=== PATIENT | female | born 1955 | race Caucasian/White ===

== ENCOUNTER → 2019-12-13 15:03 | Outpatient (BNVA) | payer MEDICARE, SELFPAY | PROVIDERS: Family Provider Family Medicine; PCP Family Medicine; Visit Provider Orthopaedic Surgery | DX: Z48.89 Encounter for other specified surgical aftercare (principal); Z98.890 Other specified postprocedural states; S92.352A Displaced fracture of fifth metatarsal bone, left foot, initial encounter for closed fracture; X58.XXXA Exposure to other specified factors, initial encounter; M20.42 Other hammer toe(s) (acquired), left foot | CPT/HCPCS: 73630 ==

== ENCOUNTER 2020-05-03 14:25 | Outpatient (CLI) | payer MEDICARE, SELFPAY ==
--- NOTE | 2020-05-03 14:31 | MM_ITS ---
WS: [id number] BILATERAL SCREENING DIGITAL MAMMOGRAM WITH CAD HISTORY: SCREENING COMPARISON: 12/07/2017 and 09/03/2010 Bilateral CC and MLO views submitted. Computer aided detection analyzed. Breast composition: The breasts are heterogeneously dense, which may obscure small masses. No suspici ous masses, microcalcifications or architectural distortion. Dense breast parenchyma with scattered c alcifications. MM/[id number] IMPRESSION: BI-RADS: 2-Benign FOLLOW UP: 1 Year Follow-up
== END 2020-05-03 14:26 | disposition home or self-care (01) ==
LOC: RADSHAW 14:30
PROVIDERS: PCP Family Medicine; Visit Provider Family Medicine
DX: Z12.31 Encounter for screening mammogram for malignant neoplasm of breast (principal)
CPT/HCPCS: 77067

== ENCOUNTER 2020-07-04 13:02 | Outpatient (CLI) | payer MEDICARE, SELFPAY ==
--- NOTE | 2020-07-04 13:13 | CT_ITS ---
WS: [id number] LDCT LUNG CANCER SCREENING TECHNIQUE: Noncontrast CT of the chest with coronal and sagittal reformatted images. CLINICAL INFORMATION: NICOTINE DEPENDENCE, CIGARETTES COMPARISON: CT July 13, 2015 DLP: 52.15 mGy.cm DIvol: 1.[address] scans at [facility] use at least one of these dose Optimization techniques: automa aby exposure control; mA and/or kV adjustment per patient size (includes targeted exams where dose is matched to clinical indication); or iterative reconstruction. FINDINGS: 2 or 3 tiny subpleural noncalcified pulmonary nodules measuring 2 to 3 mm. Lungs are well aerated. No acute pulmonary infiltrates. No consolidation or pleural fluid. No mediast inal or hilar lymphadenopathy. Mild chronic anterior wedging in the lower thoracic spine with disc sp bulmaro narrowing. CT/CT lung screening [id number] IMPRESSION: LUNG-RADS: 2-Benign Appearance or Behavior FOLLOW UP: 12 Month: Continue annual screening with LDCT
== END 2020-07-04 13:03 | disposition home or self-care (01) ==
LOC: CT 13:03
PROVIDERS: PCP Family Medicine; Visit Provider Family Medicine
DX: Z12.2 Encounter for screening for malignant neoplasm of respiratory organs (principal); F17.210 Nicotine dependence, cigarettes, uncomplicated; R91.8 Other nonspecific abnormal finding of lung field
CPT/HCPCS: G0297

== ENCOUNTER 2020-08-27 15:03 | Outpatient (CLI) | payer MEDICARE, SELFPAY ==
--- NOTE | 2020-08-27 15:30 | XR_ITS ---
WS: [id number] Exam: XR lumbar spine 2-3V* [id number] Date/Time of Exam: 08/27/2020 4:04 PM Reason For Exam: LUMBAR SPINAL TENDERNESS POST FALL Comparison 11/11/2017. No acute fracture or dislocation. Advanced degenerative disc changes and spondylosis at all levels. M ild degenerative anterolisthesis of L4 on L5. Facet arthropathy at all levels. Mild scoliosis. XR/XR lumbar spine 2-3V* [id number] IMPRESSION: 1. Moderately advanced degenerative changes. 2. No fracture or malalignment.
--- NOTE | 2020-08-27 15:30 | XR_ITS ---
WS: [id number] Exam: XR hip RT 2-3V wo/w pel* [id number] Date/Time of Exam: 08/27/2020 4:04 PM Reason For Exam: RIGHT HIP PAIN FALL A small incomplete cortical fracture is noted along the greater trochanter of the proximal right femu r. No other fractures are seen. Advanced degenerative change with [id number] articulation. Normal s oft tissues. XR/XR hip RT 2-3V wo/w pel* [id number] IMPRESSION: 1. Small incomplete cortical fracture along the greater trochanter of the right proximal femur.
== END 2020-08-27 15:04 | disposition home or self-care (01) ==
LOC: RADWPI 15:11
PROVIDERS: PCP Family Medicine; Visit Provider Family Medicine
DX: M54.5 Low back pain (principal); S72.111A Displaced fracture of greater trochanter of right femur, initial encounter for closed fracture; W19.XXXA Unspecified fall, initial encounter
CPT/HCPCS: 72100; 73502

== ENCOUNTER → 2020-09-11 11:33 | Outpatient (BNVA) | payer MEDICARE, SELFPAY | PROVIDERS: PCP Family Medicine; Visit Provider Orthopaedic Surgery | DX: M25.551 Pain in right hip (principal) | CPT/HCPCS: 73502 ==

== ENCOUNTER 2020-09-11 13:55 | Outpatient (CLI) | payer MEDICARE, SELFPAY ==
--- NOTE | 2020-09-11 | XR_ITS ---
WS: [id number] Lumbar spine, AP, L5-S1 spot, lateral with neutral, flexion and extension views, 09/11/2020 Clinical Data: TENDERNESS OF LUMBAR REGION Comparison: Lumbar spine, 08/27/2020. Findings: No compression fractures are seen. There is disc space narrowing at all levels. There is a 0.5 cm ant erolisthesis of L4 on L5.. The transverse processes and SI joints are normal. Generative arthritic change of the lower thoracic vertebral bodies in all lumbar vertebral bodies is seen. There is a levoscoliosis of the upper lumbar spine. On flexion and extension there is no limita tion of motion or change in the subluxation. XR/XR lumbar spine min 4V [id number] Impression: 1. Diffuse osteoarthritis and degenerative disc disease. 2. 0.5 cm subluxation on L4 on L5 unchanged on flexion or extension. 3. No limitation of motion on flexion or extension
== END 2020-09-11 13:56 | disposition home or self-care (01) ==
LOC: RADOUTREAD 15:00
PROVIDERS: PCP Family Medicine; Visit Provider Family Medicine
DX: M54.5 Low back pain (principal)

== ENCOUNTER → 2020-09-25 14:15 | Outpatient (BNVA) | payer MEDICARE, SELFPAY | PROVIDERS: PCP Family Medicine; Visit Provider Orthopaedic Surgery | DX: S72.111A Displaced fracture of greater trochanter of right femur, initial encounter for closed fracture (principal) | CPT/HCPCS: 73502 ==

== ENCOUNTER → 2020-10-23 11:16 | Outpatient (BNVA) | payer MEDICARE, SELFPAY | PROVIDERS: PCP Family Medicine; Visit Provider Orthopaedic Surgery | DX: S72.111A Displaced fracture of greater trochanter of right femur, initial encounter for closed fracture (principal) | CPT/HCPCS: 73502 ==

== ENCOUNTER → 2020-12-11 11:01 | Outpatient (BNVA) | payer MEDICARE, SELFPAY | PROVIDERS: PCP Family Medicine; Visit Provider Orthopaedic Surgery | DX: S72.111D Displaced fracture of greater trochanter of right femur, subsequent encounter for closed fracture with routine healing (principal); Z98.890 Other specified postprocedural states; W19.XXXD Unspecified fall, subsequent encounter | CPT/HCPCS: 73502 ==

== ENCOUNTER 2021-03-25 16:04 | Outpatient (CLI) | payer MEDICARE, SELFPAY ==
--- NOTE | 2021-03-25 16:14 | XR_ITS ---
WS: [id number] DEXA (DUAL ENERGY X-RAY ABSORPTIOMETRY) Bone mineral density was performed using a 48domain machine. HISTORY: POST MENOPAUSAL COMPARISON: 09/26/2018 Lumbar spine BMD (L1-L4): 1.216 g/cm2 T score: 0.3 Z score: 2.5 Total hip BMD: Left: 0.718 g/cm2. T score: -2.3 Z score: -0.6 Right: 0.836 g/cm2. T score: -1.4 Z score: 0.3 10 year probability of a major osteoporotic fracture is 36%. Compared to the prior study from . Lumbar spine bone mineral density has increased by 3.3%. Bilateral hips bone mineral density has increased by 4.2%. XR/XR DEXA axial skeleton* [id number] IMPRESSION: OSTEOPENIA based upon the WHO classification for females. Significant increase in bone mineral density since the prior study within both hips and lumbar spine.
== END 2021-03-25 16:05 | disposition home or self-care (01) ==
LOC: RADWPI 16:09
PROVIDERS: PCP Family Medicine; Visit Provider Family Medicine
DX: Z78.0 Asymptomatic menopausal state (principal); M85.88 Other specified disorders of bone density and structure, other site
CPT/HCPCS: 77080

== ENCOUNTER 2021-08-14 13:03 | Outpatient (CLI) | payer MEDICARE, SELFPAY ==
--- NOTE | 2021-08-14 13:06 | CT_ITS ---
WS: [id number] LDCT LUNG CANCER SCREENING TECHNIQUE: Noncontrast CT of the chest with coronal and sagittal reformatted images. CLINICAL INFORMATION: HISTORY OF TOBACCO USE COMPARISON: CT lung screening July 04, 2020, CT chest July 13, 2015 DLP: 51.81 mGy.cm DIvol: 1.[address] scans at [facility] use at least one of these dose optimization techniques: automat ed exposure control; mA and/or kV adjustment per patient size (includes targeted exams where dose is matched to clinical indication); or iterative reconstruction. FINDINGS: Both lungs are well aerated. No acute pulmonary infiltrates. No focal pneumonia or pleural fluid. A f ew tiny 2-3 mm noncalcified subpleural nodules unchanged. Normal caliber thoracic aorta. No mediastin al or hilar lymphadenopathy. No axillary lymphadenopathy. Normal GE junction. Mild thoracic curve. Mild thoracic kyphosis. Moderate spondylitic changes with disc space narrowing t hroughout the thoracic spine. Mild chronic anterior wedging in the lower thoracic and upper lumbar sp ine. CT/CT lung screening [id number] IMPRESSION: LUNG-RADS: 2-Benign Appearance or Behavior FOLLOW UP: 12 Month: Continue annual screening with LDCT
== END 2021-08-14 13:04 | disposition home or self-care (01) ==
LOC: CT 13:04
PROVIDERS: PCP Family Medicine; Visit Provider Family Medicine
DX: Z12.2 Encounter for screening for malignant neoplasm of respiratory organs (principal); Z87.891 Personal history of nicotine dependence
CPT/HCPCS: 71271

== ENCOUNTER 2021-08-14 13:25 | Outpatient (CLI) | payer MEDICARE, SELFPAY ==
--- NOTE | 2021-08-14 13:28 | MM_ITS ---
WS: [id number] Bilateral screening digital mammogram, 08/14/2021 Clinical Data: SCREENING Comparison: 05/03/2020, 12/07/2017, 09/03/2010. Findings: The breast parenchymal pattern shows heterogeneous density No spiculated masses or clustered calcific ations are seen. There are no secondary signs of carcinoma. MM/[place] [id number] Impression: 1. Negative bilateral mammogram unchanged. 2. Recommend annual screening mammograms. BIRADS: 1-Negative FOLLOW UP: 1 Year Follow-up The CAD checker cashier was used.
== END 2021-08-14 13:26 | disposition home or self-care (01) ==
LOC: RADSHAW 13:27
PROVIDERS: PCP Family Medicine; Visit Provider Family Medicine
DX: Z12.31 Encounter for screening mammogram for malignant neoplasm of breast (principal)
CPT/HCPCS: 77067

== ENCOUNTER → 2021-11-26 11:39 | Outpatient (BNVA) | payer MEDICARE, SELFPAY | PROVIDERS: PCP Family Medicine; Visit Provider Podiatrist Foot & Ankle Surgery | DX: M20.40 Other hammer toe(s) (acquired), unspecified foot (principal) | CPT/HCPCS: 73630 ==

== ENCOUNTER → 2021-12-15 00:01 | Outpatient (BNVA) | payer MEDICARE, SELFPAY | PROVIDERS: PCP Family Medicine; Visit Provider Podiatrist Foot & Ankle Surgery | DX: Z01.818 Encounter for other preprocedural examination (principal); Z20.822 Contact with and (suspected) exposure to COVID-19 | CPT/HCPCS: 87635; 87801 ==

== ENCOUNTER 2021-12-19 06:20 | Day surgery (SDC) | payer MEDICARE, SELFPAY ==
[2021-12-18 12:43] VITALS: BMI 20.6
[2021-12-19] VITALS (10 sets, daily range): BP systolic 126–160; BP diastolic 65–81; PULSE 53–66; RESP 14–18; TEMP 36.6–36.8; O2SAT 94–99
--- NOTE | 2021-12-19 | SCC_ITS ---
Procedure done: Left gastrocnemius recession, left second flexor digitorum longus tendon transfer to extensor digitorum longus, left proximal interphalangeal joint arthrodesis second toe, left third and fourth toe proximal interphalangeal joint arthrodesis. Fluoroscopic guidance was provided to Dr. Schmid. C-arm images of the LEFT foot were saved for the patient's permanent record. RAUL
[2021-12-19] MEDS: gabapentin 300 mg Capsule PO (06:53)
[2021-12-19] MEDS: CELEcoxib 200 mg Capsule 400 MG PO (06:53)
[2021-12-19] MEDS: sodium chloride 0.9% 1,000 ML 30 ML IV (06:58)
--- NOTE | 2021-12-19 07:17 | ANES.PREANE2 ---
Pre-Anesthetic Assessment Height/Weight: Height 1.57 m Weight 51.256 kg Temp Pulse Resp BP Pulse Ox 98.0 F 53 L 18 160/81 98 12/19/21 06:41 12/19/21 06:41 12/19/21 06:41 12/19/21 06:41 12/19/21 06:41 Preop Diagnosis: Equinus, metatarsalgia and hammertoe two, three and four all left lower Operation Date: 12/19/21 07:45 Proposed Procedures p Gastrocnemius Recession [id number](Left) - Mando Schmid DPM s Hammertoe Correction(Left) - Mando Schmid DPM Familial anesthetic complications: None Was Beta Mayur taken within 24 hours: N/A Was Clonidine taken within 24 hours: N/A Last intake: Intake Last Liquid Date 12/18/21 Last Liquid Time 23:00 Last Solid Date 12/18/21 Last Solid Time 18:30 Social No alcohol Exam alert, oriented x 3, clear to auscultation bilaterally and regular rate & rhythm Airway Submandibular: within normal limits Cervical ROM: within normal limits Mallampati: Class II Dentition: partials Pulmonary None reported CV/HEM None reported None reported Hepatic None reported Musc/skel Lower Back Pain and Osteoarthritis/DJD Neuropsych Clastrophobia Anesthetic Plan ASA status: 2 Anesthesia: Anesthesia Evaluation, General and MAC Other: We discussed risk and benefits of general anesthesia including PONV, sore throat (sometimes severe), corneal abrasion, positioning and peripheral nerve injuries, life threatening allergic reaction, post operative ICU admission requiring prolonged intubation, stroke, heart attack, , and rare incidences of recall. Patient consents to proceed with general anesthesia or MAC anesthesia pending further conversation with surgeon. I discussed with the patient risks, goals, and benefits of MAC and general anesthesia. We discussed spectrum of MAC anesthesia including conversion to general as well as possibility of recall of intraoperative stimuli including discomfort/pain. Risk of > 500 ml blood loss (7ml/kg in children): No Medications/Allergies Home Medications Medication Instructions Recorded Confirmed Last Taken Type duloxetine 30 mg capsule,delayed 30 mg PO DAILY 12/13/19 12/19/21 12/18/21 History release gabapentin 800 mg tablet 800 mg PO TID 12/13/19 12/19/21 12/18/21 History hydrocodone 10 mg-acetaminophen 1 tab PO Q8H PRN 11/26/21 12/19/21 12/18/21 History 325 mg tablet Allergies Allergy/AdvReac Type Severity Reaction Status Date / Time No Known Allergies Allergy Verified 12/19/21 06:39 Current Medications Generic Name Dose Route Start Last Admin Trade Name Freq PRN Reason Stop Dose Admin Sodium Chloride 1,000 mls @ 30 mls/hr 12/19/21 06:45 12/19/21 06:58 Sodium Chloride 0.9% IV 12/20/21 06:44 30 mls/hr .Q24H NITZA Administration PFSH Anesthesia Medical History Claustrophobia Closed displaced fracture of shaft of left clavicle with routine healing Discogenic syndrome, lumbar Hx of fracture of clavicle Papilledema, left eye Surgical History History of kidney surgery History of tubal ligation Hx of oophorectomy Family History Denies family history of Diabetes CAD (coronary artery disease) Clotting disorder Dementia Hyperlipidemia Psychiatric illness Chronic kidney disease (CKD) Suicide Anesthesia complication Bleeding disorder Family history of premature coronary artery disease Lung disease Cancer Hypertension Stroke Social History Smoking and tobacco status: current some day smoker cigarettes Alcohol intake: never Data Anesthesia Cardiac Studies: No Data to Display
--- NOTE | 2021-12-19 07:37 | W.PM.OPSUD ---
Surgery/Procedure H&P Update DATE OF PROCEDURE: December 19, 2021 DATE H&P PERFORMED: 12/15/21 CHANGES TO PREVIOUS DOCUMENTATION: none PREOP DIAGNOSIS: Equinus, metatarsalgia and hammertoe two, three and four all left lower PLANNED PROCEDURE: Operation Date: 12/19/21 07:45 Proposed Procedures p Gastrocnemius Recession [id number](Left) - Mando Schmid DPM s Hammertoe Correction(Left) - Mando Schmid DPM
--- NOTE | 2021-12-19 07:46 | XR_ITS ---
WS: [id number] Left foot, 3 views, 12/19/2021 Clinical Data: post op Comparison: Left foot, 11/26/2021. Findings: The postsurgical changes include an osteotomy with small orthopedic screws at the head of the left se cond metatarsal. There are fusion pins causing an arthrodesis of the left second through fourth toes. The osteotomy at the head of the left first metatarsal and plate and screw fixation of an old left fi fth metatarsal fracture remain the same. XR/XR foot LT min 3V* [id number] Impression: Postsurgical changes of the second through fourth toes.
[2021-12-19] MEDS: lidocaine 1% INJ 20 mL 15 ML XX (08:17)
--- NOTE | 2021-12-19 09:36 | PM.OP ---
Operative Report Date of procedure: December 19, 2021 Pre-op diagnosis: Equinus, metatarsalgia and hammertoe two, three and four all left lower Post-op diagnosis: Same Post-op findings: None Procedure done: Left gastrocnemius recession, left second flexor digitorum longus tendon transfer to extensor digitorum longus, left proximal interphalangeal joint arthrodesis second toe, left third and fourth toe proximal interphalangeal joint arthrodesis. CPT codes: 69395, 06953, 00006, 14263 Implants: [place] 28 12 mm snap off screw, [place] 28 13 mm snap off screw x2, [place] 28 K wire x3, [place] 28 hammer tube 0 degree angle, 4-0 nylon, 3-0 Vicryl, 3-0 nylon, 4-0 Vicryl. Specimens removed/disposition: None Pathology: None Surgeon: Mando Schmid D.P.M. Applier: Isaac Estimated blood loss: Less than 10 87 IV fluids: 0 Urine output: 0 Complications: None Findings: None Brief History: X rays left foot 3 views shows dislocation at the left second metatarsal phalangeal joint, left second toe is rotated externally with medial angulation and sagittal plane contracture is overriding the great toe.? Sagittal plane dominant hammertoe deformity of the left third toe also appreciated.? Stable hardware at the left fifth metatarsal.? Evidence of bunionectomy of the left foot.? Patient wishing to undergo surgical correction would require gastrocnemius recession, Dulce osteotomy of the second metatarsal and flexor digitorum longus tendon transfer to the second toe, hammertoe corrections 2, 3 and 4 all left lower extremity.? Risks include pain, bleeding, numbness, infection, hardware failure, hardware irritation, delayed union, malunion, nonunion, chronic swelling, surgical site dehiscence, painful hardware, decreased range of motion, cock-up toe, recurrence of angular deformity of lesser digits, altered mechanics, need for further surgical intervention also risk for heart attack, stroke, deep vein thrombosis.? Patient wishes to proceed. Procedure: Under mild sedation the patient was brought to the operating room and remained on the gurney in supine position. A timeout was performed. Anesthesia was administered by the anesthesia service. Local anesthesia injected by myself in a second, third and fourth ray block fashion utilizing one-to-one mixture 1% lidocaine and 0.5% Marcaine plain total of 30 cc utilized. Well-padded pneumatic tourniquet applied to the right thigh. The right lower extremity was then scrubbed, prepped and draped utilizing normal aseptic technique. Left foot was then extenuated with an Esmarch bandage and a tourniquet inflated to 250 mmHg. Attention was directed to the left leg medially at the flare of the gastrocnemius muscle distally where just proximal to this a linear longitudinal incision was made approximately 3 cm in length through skin with dissection carried down bluntly through subcutaneous tissue to the layer of crural fascia. Care was taken to retract and preserve neurovascular and tendinous structures. All bleeders were ligated and cauterized as necessary. Linear incision with a deep blade through the crural fascia was performed in the interval between the gastrocnemius and psoas muscles were delineated. Utilizing a self-retaining retractor I was able to visualize from medial to lateral to gastrocnemius aponeurosis which was released utilizing Metzenbaum scissors. The incision was flushed with saline solution. Increased dorsiflexion appreciated intraoperatively following gastrocnemius release. Crural fascia was then closed utilizing 3-0 Vicryl, subcutaneous tissue closed with 3-0 Vicryl and skin closed with 4-0 nylon. Area was then covered with an OpSite. Attention was directed to the dorsal aspect of the left second toe where a linear longitudinal incision was made just distal to the proximal interphalangeal joint coursing proximally to the proximal portion of the metatarsal phalangeal joint of this left second ray. Dissection was carried down through subcutaneous tissue utilizing blunt and sharp technique. Care was taken to retract observe neurovascular and tendinous structures. All bleeders were ligated and cauterized as necessary. A transverse capsulotomy was performed at the left second metatarsophalangeal joint and a Dulce osteotomy was performed with the second metatarsal head shifted proximally approximately 3 mm held rectus and fixated utilizing [place] 28 snap off screws 12 mm and 13 mm in length with excellent bony apposition and compression noted. Redundant shelf remodeled dorsally of the second metatarsal. Attention was then directed to the left second toe where a transverse tenotomy was performed to the extensor tendons at the level of the proximal interphalangeal joint. Extensor tendon was retracted proximally and held with mosquito hemostat. The head of the proximal phalanx of the left second toe and the base of the intermediate phalanx were denuded of the articular surfaces followed by implantation of a intramedullary implant [place] 28 hammer tube for arthrodesis of the proximal interphalangeal joint. Dorsiflexion remained at the second toe necessitating a tendon transfer. Flexor hallucis longus tendon was dissected through its area where appears to the flexor digitorum brevis. It was split longitudinally and brought medially laterally around the diaphysis of the proximal phalanx of the second toe held under tension and sutured utilizing 3-0 nylon. Following the tendon transfer the left second toe was in a more rectus position. Additional stability was performed utilizing K wire fixation integrated and retrograded from the second toe crossing the metatarsophalangeal joint. Attention was then directed to the hammertoe deformities of the left third and fourth toes where semielliptical converging incisions transverse in nature were performed across the level of the proximal interphalangeal joint. Extensor tendons were transected and reflected proximally both of the left third and fourth toes. The head of the proximal phalanx was transected utilizing a sagittal saw and the base of the intermediate phalanx was denuded of articular surface utilizing a curved rongeur at the third and fourth toes. Incisions were flushed with saline solution followed by fixation of the left third and fourth toes utilizing [place] 28 K wire at the left third and fourth toes with excellent bony apposition and compression noted at the proximal interphalangeal joint arthrodesis site of the left third and fourth toes. All K wires were bent at a 90 degree angle and covered with a Aryan ball. Intraoperative fluoroscopy confirmed excellent placement of hardware in all 3 planes on the second, third and fourth rays of the left foot. Incision sites were flushed with copious amounts of sterile saline solution and closed in a layered fashion. Subcutaneous tissue with 4-0 Vicryl and skin with 4-0 nylon. All incisions were then dressed with Adaptic, sterile 4 x 4, Kerlix, Osvaldo wrap and a cam boot was applied. Tourniquet was deflated and a prompt hyperemic response was noted to the distal digits of the left foot. Patient tolerated the procedure well and was transferred to the PACU with vital signs stable and vascular status intact. Following a period of postoperative monitoring she will be discharged home may heel touch for transfers. She is to elevate her left foot while resting. Will follow-up next week was given at home care instructions and my contact information for any questions or concerns.
--- NOTE | 2021-12-19 09:50 | SUR.PHASEI ---
RECEIVED PATIENT FROM OR STAFF. A+0 X3 VENTILATING WELL. NSR ON MONITOR. DENIES PAIN+NAUSEA.
[2021-12-19] MEDS: oxyCODONE-APAP 10-325 mg Tablet 1 TAB PO (10:42)
--- NOTE | 2021-12-19 13:38 | ANE.PACU2 ---
Inpatient post-anesthesia follow up: Airway intact: Yes Vital signs: Temperature 98.2 F Pulse Rate 64 Respiratory Rate 16 Blood Pressure 134/74 Pulse Oximetry 99 Oxygen Delivery Me thod Room Air Oxygen Flow Rate Fraction of Inspir ed Oxygen Hydration adequate: Yes Nausea and vomiting: No Pain level: 3 Mental status: Baseline
== END 2021-12-19 11:00 | disposition home or self-care (01) ==
PROVIDERS: PCP Family Medicine; Visit Provider Podiatrist Foot & Ankle Surgery
PROC: (CPT 27687; principal; 2021-12-19 07:45)
PROC: (CPT 28285; 2021-12-19 07:45)
DX: M20.42 Other hammer toe(s) (acquired), left foot (principal); F17.210 Nicotine dependence, cigarettes, uncomplicated
CPT/HCPCS: 27687; 28285 ×3; 73630; 76000; C1713; J0690; J1100; J2250; J2405; J2704; J3010; J3490; J7030

== ENCOUNTER → 2022-01-01 14:58 | Outpatient (BNVA) | payer MEDICARE, SELFPAY | PROVIDERS: PCP Family Medicine; Visit Provider Podiatrist Foot & Ankle Surgery | DX: Z48.89 Encounter for other specified surgical aftercare (principal); Z98.890 Other specified postprocedural states | CPT/HCPCS: 73630 ==

== ENCOUNTER → 2022-01-14 15:35 | Outpatient (BNVA) | payer MEDICARE, SELFPAY | PROVIDERS: PCP Family Medicine; Visit Provider Podiatrist Foot & Ankle Surgery | DX: Z98.890 Other specified postprocedural states (principal); F17.210 Nicotine dependence, cigarettes, uncomplicated | CPT/HCPCS: 73630; 99024 ==

== ENCOUNTER → 2022-01-29 12:56 | Outpatient (BNVA) | payer MEDICARE, SELFPAY | PROVIDERS: PCP Family Medicine; Visit Provider Podiatrist Foot & Ankle Surgery | DX: F17.210 Nicotine dependence, cigarettes, uncomplicated (principal); Z98.890 Other specified postprocedural states | CPT/HCPCS: 73630 ==

== ENCOUNTER → 2022-02-13 13:49 | Outpatient (BNVA) | payer MEDICARE, SELFPAY | PROVIDERS: PCP Family Medicine; Visit Provider Podiatrist Foot & Ankle Surgery | DX: Z98.890 Other specified postprocedural states (principal); F17.210 Nicotine dependence, cigarettes, uncomplicated | CPT/HCPCS: 73630 ==

== ENCOUNTER → 2022-02-27 13:32 | Outpatient (BNVA) | payer MEDICARE, SELFPAY | PROVIDERS: PCP Family Medicine; Visit Provider Podiatrist Foot & Ankle Surgery | DX: Z98.890 Other specified postprocedural states (principal) | CPT/HCPCS: 73630 ==

== ENCOUNTER 2022-10-22 13:31 | Outpatient (CLI) | payer MEDICARE, SELFPAY ==
--- NOTE | 2022-10-22 13:50 | MM_ITS ---
WS: [id number] BILATERAL 3D TOMOSYNTHESIS DIGITAL SCREENING MAMMOGRAPHY WITH CAD CLINICAL INFORMATION: SCREENING HISTORY: Screening mammogram. No current complaints. COMPARISON: 2020 TECHNIQUE: Bilateral CC and MLO views. FINDINGS: The breasts are composed of heterogeneous fibroglandular density tissue, which can limit the detectio n of small underlying mass lesions. No suspicious mass, asymmetry, calcifications, or architectural d istortion. No evidence of malignancy. Punctate and lucent center calcifications. MM/[place] [id number] IMPRESSION: BI-RADS: 2-Benign FOLLOW UP: 1 Year Follow-up Recommend return to annual screening mammography.
== END 2022-10-22 13:32 | disposition home or self-care (01) ==
LOC: RAD 13:34
PROVIDERS: PCP Family Medicine; Visit Provider Family Medicine
DX: Z12.31 Encounter for screening mammogram for malignant neoplasm of breast (principal)
CPT/HCPCS: 77063; 77067

== ENCOUNTER 2022-11-13 10:08 | Outpatient (CLI) | payer MEDICARE, SELFPAY ==
--- NOTE | 2022-11-13 10:24 | CT_ITS ---
WS: [id number] LDCT LUNG CANCER SCREENING HISTORY: HX OF TOBACCO USE TECHNIQUE: Axial imaging performed from the apices to 1 cm below the costophrenic angles. Coronal and sagittal reformats are submitted with axial MIP series. All CT scans at [facility] use at least one of these dose optimization techniques: automated exposure control; mA and/or kV adjustment per patient size (includes targeted exams where dose is matched to clinical indication); or iterativ e reconstruction. DLP: 72.91 mGy.cm DIvol: Mean CTDIvol: 1.60 (mGy) COMPARISON: 08/14/2021 Diagnostic quality: Satisfactory Lung Nodules: No nodules or endobronchial lesions. No pneumonia. Lungs: Mild chronic emphysema. Heart: Normal size heart. No pericardial effusion. Other findings: No mediastinal or hilar adenopathy. Mild atherosclerosis aorta. Normal size pulmonary artery. CT/CT lung screening [id number] IMPRESSION: LUNG-RADS: 1-Negative FOLLOW UP: 12 Month: Continue annual screening with LDCT OTHER FINDINGS (S MODIFIER): None.
== END 2022-11-13 10:09 | disposition home or self-care (01) ==
PROVIDERS: PCP Family Medicine; Visit Provider Family Medicine
DX: Z12.2 Encounter for screening for malignant neoplasm of respiratory organs (principal); Z87.891 Personal history of nicotine dependence; J43.9 Emphysema, unspecified
CPT/HCPCS: 71271

== ENCOUNTER 2024-01-25 11:46 | Outpatient (CLI) | payer MEDICARE, SELFPAY ==
--- NOTE | 2024-01-25 11:50 | CT_ITS ---
WS: [id number] LDCT LUNG CANCER SCREENING TECHNIQUE: Noncontrast CT of the chest with coronal and sagittal reformatted images. CLINICAL INFORMATION: HX OF TOBACCO USE COMPARISON: CT 11/13/2022 DLP: 40.90 mGy.cm DIvol: Mean CTDIvol: 0.80 (mGy) All CT scans at [facility] use at least one of these dose optimization techniques: automat ed exposure control; mA and/or kV adjustment per patient size (includes targeted exams where dose is matched to clinical indication); or iterative reconstruction. FINDINGS: No suspicious pulmonary normalities. Slight atelectases in the lingula. Slight subsegmental atelectasis in the lung bases. Normal caliber thoracic aorta. No mediastinal or hilar lymphadenopathy. No axillary lymphadenopathy. Adrenal glands are normal. Normal GE junction. Moderate spondylitic changes thoracic spine IMPRESSION: CT/CT lung screening [id number] LUNG-RADS: 1-Negative FOLLOW UP: 12 Month: Continue annual screening with LDCT
== END 2024-01-25 11:47 | disposition home or self-care (01) ==
LOC: RAD 11:46
PROVIDERS: PCP Family Medicine; Visit Provider Family Medicine
DX: Z87.891 Personal history of nicotine dependence (principal); Z12.2 Encounter for screening for malignant neoplasm of respiratory organs
CPT/HCPCS: 71271

== ENCOUNTER 2024-02-03 13:32 | Outpatient (CLI) | payer MEDICARE, SELFPAY ==
--- NOTE | 2024-02-03 13:30 | MM_ITS ---
WS: [id number] SCREENING DIGITAL BREAST TOMOSYNTHESIS MAMMOGRAM WITH CAD HISTORY: SCREENING COMPARISON: 10/22/2022, 08/14/2021 Bilateral CC and MLO with tomosynthesis and synthetic mammography submitted. Computer aided detection analyzed. Breast composition: The breasts are heterogeneously dense, which may obscure small masses. Subtle are a of architectural distortion in the posterior lateral RIGHT breast seen only on the CC projection. B enign calcifications in each breast. IMPRESSION: MM/[place] [id number] BI-RADS: 0-Incomplete: Need additional imaging evaluation FOLLOW UP: Need Additional Imaging RIGHT breast: Spot compression views (CC ). True ML. Ultrasound to follow if ab normality persists.
== END 2024-02-03 13:33 | disposition home or self-care (01) ==
LOC: MOBLMAM 13:38
PROVIDERS: PCP Family Medicine; Visit Provider Family Medicine
DX: Z12.31 Encounter for screening mammogram for malignant neoplasm of breast (principal); R92.333 Mammographic heterogeneous density, bilateral breasts; N64.89 Other specified disorders of breast
CPT/HCPCS: 77063; 77067

== ENCOUNTER 2024-03-21 14:54 | Outpatient (CLI) | payer MEDICARE, SELFPAY ==
--- NOTE | 2024-03-21 15:00 | MM_ITS ---
WS: [id number] ADDITIONAL VIEWS RIGHT MAMMOGRAM WITH DIGITAL BREAST TOMOSYNTHESIS. HISTORY: ABNORMAL MAMMO COMPARISON: 02/03/2024, 10/22/2022, 08/14/2021 Spot compression views RIGHT breast in CC, and true ML submitted with digital breast tomosynthesis an d SYED. The asymmetry and distortion described on the RIGHT CC projection from 02/03/2024 is no longer present . Dense fibroglandular tissue. No distortion. Benign calcifications. MM/[place] [id number] IMPRESSION: BI-RADS: 2-Benign FOLLOW UP: 1 Year Follow-up Return to annual screening mammography.
== END 2024-03-21 14:55 | disposition home or self-care (01) ==
LOC: RAD 14:54
PROVIDERS: PCP Family Medicine; Visit Provider Family Medicine
DX: R92.8 Other abnormal and inconclusive findings on diagnostic imaging of breast (principal); R92.333 Mammographic heterogeneous density, bilateral breasts
CPT/HCPCS: 77061; G0279

== ENCOUNTER 2025-06-25 13:58 | Outpatient (CLI) | payer MEDICARE, SELFPAY ==
--- NOTE | 2025-06-25 14:06 | MM_ITS ---
WS: [id number] BILATERAL 3D TOMOSYNTHESIS DIGITAL SCREENING MAMMOGRAPHY WITH CAD CLINICAL INFORMATION: SCREENING HISTORY: Screening mammogram. No current complaints. COMPARISON: 2023 TECHNIQUE: Bilateral CC and MLO views. FINDINGS: The breasts are composed of heterogeneous fibroglandular density tissue, which can limit the detection of small underlying mass lesions. No suspicious mass, asymmetry, calcifications, or architectural distortion. No evidence of malignancy. Benign calcifications bilaterally MM/MM scr tomosynthesis [id number] IMPRESSION: DENSITY: The breasts are heterogeneously dense, which may obscure small masses. BI-RADS: 2 - Benign FOLLOW UP: 1 Year Follow-up Recommend return to annual screening mammography.
--- NOTE | 2025-06-25 14:06 | XR_ITS ---
WS: [id number] DEXA (DUAL ENERGY X-RAY ABSORPTIOMETRY) Bone mineral density was performed using a [employer] machine. HISTORY: OSTEOPENIA AFTER MENOPAUSE COMPARISON: 03/25/2021 Lumbar spine BMD (L1-L4): 1.276 g/cm2 T score: 0.8 Z score: 2.6 Left forearm BMD: 0.735 g/cm2. T score: -1.6 Z score: 0.3 Compared to the prior study from 03/25/2021. Lumbar spine bone mineral density has increased by 4.8%. XR/XR DEXA axial skeleton* [id number] IMPRESSION: OSTEOPENIA based upon the WHO classification for females. There has been a significant increase in bone mineral density within the lumbar spine since the prior study. No comparison of the forearm.
== END 2025-06-25 13:59 | disposition home or self-care (01) ==
LOC: RAD 14:00
PROVIDERS: PCP Family Medicine; Visit Provider Physician Assistant
DX: Z12.31 Encounter for screening mammogram for malignant neoplasm of breast (principal); Z78.0 Asymptomatic menopausal state
CPT/HCPCS: 77063; 77067; 77080

== ENCOUNTER 2025-06-27 16:50 | Outpatient (CLI) | payer MEDICARE, SELFPAY ==
--- NOTE | 2025-06-27 17:01 | CT_ITS ---
WS: [id number] LDCT LUNG CANCER SCREENING HISTORY: PERSONAL HISTORY OF NICOTINE DEPENDENCE TECHNIQUE: Axial imaging performed from the apices to 1 cm below the costophrenic angles. Coronal and sagittal reformats are submitted with axial MIP series. All CT scans at [facility] use at least one of these dose optimization techniques: automated exposure control; mA and/or kV adjustment per patient size (includes targeted exams where dose is matched to clinical indication); or iterative reconstruction. DLP: 45.50 mGy.cm DIvol: Mean CTDIvol: 0.90 (mGy) COMPARISON: 01/25/2024 Diagnostic quality: Satisfactory Lungs: Thin bandlike area of atelectasis medial RIGHT upper lobe, lingula and RIGHT middle lobe. Mild bronchiectasis in the lingula. No pulmonary nodule or mass. No pneumonia. No endobronchial lesions. Heart: Normal size heart with no pericardial effusion.. Other findings: Minimal atherosclerosis aorta. Mild thyroid enlargement extending 6 substernal. No adenopathy. Small hiatal hernia. No adrenal mass. 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 No destructive bone lesions. Prior ORIF LEFT clavicle. CT/CT lung screening [id number] IMPRESSION: LUNG-RADS: 1-Negative FOLLOW UP: 12 Month: Continue annual screening with LDCT OTHER FINDINGS (S MODIFIER): None.
== END 2025-06-27 16:51 | disposition home or self-care (01) ==
LOC: RAD 16:51
PROVIDERS: PCP Family Medicine; Visit Provider Physician Assistant
DX: Z87.891 Personal history of nicotine dependence (principal); I70.0 Atherosclerosis of aorta; K44.9 Diaphragmatic hernia without obstruction or gangrene; M51.34 Other intervertebral disc degeneration, thoracic region; Z96.612 Presence of left artificial shoulder joint; E04.9 Nontoxic goiter, unspecified
CPT/HCPCS: 71271